=== PATIENT | male | born 2000 | race Caucasian/White ===

== ENCOUNTER 2020-05-18 11:00 | Emergency (ER) | payer SELFPAY ==
[~2020-05-18] VITALS: Ht 170 cm; Wt 62.0 kg
--- NOTE | 2020-05-18 11:26 | ED Upper Extremity ---
General Chief Complaint: Upper Extremity Stated Complaint: R ARM PAIN/INJ Nursing Triage Note: patient reports a bull stepping on his R forearm yesterday evening Nursing Sepsis Screen: No Definite Risk Source: patient Exam Limitations: no limitations History of Present Illness Date Seen by Provider: May 18, 2020 Time Seen by Provider: 11:06 Initial Comments Patient presents ER by private conveyance with chief complaint that last night while at a boarding competition he was thrown from a bowl and the back leg and the ball came down on his extended right forearm midshaft causing hyperextension injury and pain and swelling in his right elbow and proximal radius, ulna on the right side. He did not get struck anywhere else and has no pain elsewhere. He has limited range of motion to supination/pronation and extension of the right forearm. He is holding his right forearm and splinting position against his body. He is right-handed. No previous fracture or surgery or medical history. He does not take any medications routinely. He did take some Tylenol but has not been checked out for this yet. He denies being struck in the head nor loss of consciousness. Allergies and Home Medications Allergies Coded Allergies: No Known Drug Allergies (Unverified , 05/18/20) Patient Home Medication List Home Medication List Reviewed: Yes Review of Systems Constitutional: No chills, No diaphoresis EENTM: No ear discharge, No ear pain Respiratory: No cough, No short of breath Cardiovascular: No Hx of Intervention, No syncope Gastrointestinal: No abdominal pain, No constipation, No diarrhea Genitourinary: No decreased output, No discharge Musculoskeletal: see HPI; No back pain; joint pain All Other Systems Reviewed Negative Unless Noted: Yes Past Eyjytll-Kzvpso-Mrqdoc Hx Patient Social History Alcohol Use: Denies Use Recreational Drug Use: No Smoking Status: Never a Smoker Recent Foreign Travel: No Contact w/Someone Who Travel: No Recent Infectious Disease Expo: No Recent Hopitalizations: No Past Medical History Surgeries: No Respiratory: No Cardiac: No Neurological: No Genitourinary: No Gastrointestinal: No Musculoskeletal: No Endocrine: No HEENT: No Cancer: No Psychosocial: No Integumentary: No Blood Disorders: No Physical Exam Vital Signs Vital Signs - First Documented 05/18/20 11:05 Temp 36.7 Pulse 63 Resp 18 B/P (MAP) 131/89 (103) Pulse Ox 99 Capillary Refill : Less Than 3 Seconds Height, Weight, BMI Height: '" Weight: lbs. oz. kg; 21.00 BMI Method: General Appearance: WD/WN, no apparent distress HEENT: normal ENT inspection, pharynx normal Neck: full range of motion, normal inspection Cardiovascular: normal peripheral pulses, regular rate, rhythm Respiratory: no respiratory distress, no accessory muscle use Shoulder: normal inspection, non-tender, no evidence of injury, normal ROM Elbow/Forearm: Right, bone tenderness (proximal ulna/radius right), ecchymosis (proximal right forearm), limited ROM (right forearm held in flexion splinted against the body), pain (proximal right forearm), soft tissue tenderness (proximal right forearm), swelling (Soft, nontender) Wrist: Yes non-tender, Yes no evidence of injury, Yes normal ROM Hand: normal inspection, non-tender, no evidence of injury, normal ROM, Right Neurologic/Psychiatric: no motor/sensory deficits, alert, normal mood/affect, oriented x 3 Skin: warm/dry, ecchymosis Progress/Results/Core Measures Results/Orders My Orders Orders - KOKO CAVANAUGH Forearm, Right, 2 Views (05/18/20 11:15) Elbow, Right, 3 Views (05/18/20 11:15) Vital Signs/I&O 05/18/20 11:05 Temp 36.7 Pulse 63 Resp 18 B/P (MAP) 131/89 (103) Pulse Ox 99 Blood Pressure Mean: 103 Progress Progress Note : Time: 11:23 Progress Note Ice pack. He declined anything for pain. Plan to get focused x-rays of the right elbow as well as the radius/ulna. Do not suspect compartment syndrome. Do suspect fracture possible olecranon or shaft. Diagnostic Imaging Diagonstic Imaging: Xray Plain Films/CT/US/NM/MRI: elbow (right) Comments [facility]. [place], [place] NAME: RE HERNANDEZZACH Araya MED REC#: [id number] PT STATUS: REG ER : 2000 PHYSICIAN: KOKO CAVANAUGH MD ADMIT DATE: 05/18/20/ER Draft Date of Exam:05/18/20 ELBOW, RIGHT, 3 VIEWS INDICATION: Right elbow pain. FINDINGS: AP, oblique, and lateral views of the right elbow were obtained. No fracture or acute bony abnormality is seen. IMPRESSION: Negative right elbow. Dictated on workstation # [id number] Dict: 05/18/20 1212 Trans: 05/18/20 1217 [facility] [id number] Interpreted by: JYOTI BLANCA MD Electronically signed by: Reviewed: Reviewed by Me Diagonstic Imaging: Xray Plain Films/CT/US/NM/MRI: forearm (right) Comments NAME: MICHAEL HERNANDEZ [facility] REC#: [id number] PT STATUS: REG ER : 2000 PHYSICIAN: KOKO CAVANAUGH MD ADMIT DATE: 05/18/20/ER Draft Date of Exam:05/18/20 FOREARM, RIGHT, 2 VIEWS INDICATION: Injury to right forearm AP and lateral views of the right forearm are obtained. No fracture or acute bony abnormality is seen. IMPRESSION: Negative right forearm. Dictated on workstation # [id number] Dict: 05/18/20 1213 Trans: 05/18/20 1217 [facility] [id number] Interpreted by: JYOTI BLANCA MD Electronically signed by: Reviewed: Reviewed by Me Departure Impression Primary Impression: Sprain of right elbow Qualified Codes: S53.401A - Unspecified sprain of right elbow, initial encounter Disposition: 01 HOME, SELF-CARE Condition: Stable Departure-Patient Inst. Decision time for Depature: 12:20 Referrals: NO,LOCAL PHYSICIAN (PCP/Family) Primary Care Physician Patient Instructions: Elbow Sprain (DC) Add. Discharge Instructions: Wrap the elbow with an Lisandro bandage or neoprene sleeve. Keep it in a sling for about one week taking it out several times a day to move it around. Ice pack 20 minutes on every 2-4 hours for the first 2 days. Warm moist heat can be helpful for pain. Topical creams such as icy hot, Biofreeze, blue emu, etc. Tylenol 1000 mg every 8 hours as necessary for pain. Ibuprofen 800 mg every 8 hours as necessary for pain. If you're not seeing some significant improvement in 7-10 days then you need to follow-up with your primary care doctor or you may return to the ER for further evaluation. All discharge instructions reviewed with patient and/or family. Voiced und erstanding. Work/School Note: Work Release Form Date Seen in the Emergency Department: May 18, 2020 Return to Work: May 19, 2020 Restrictions: Need Release from Doctor Other Restrictions Listed Below: No lifting, pushing or pulling greater than 5# with right arm until 05/25/20 KOKO CAVANAUGH May 18, 2020 11:26
--- NOTE | 2020-05-18 12:18 | Diagnostic Imaging Report ---
INDICATION: Injury to right forearm AP and lateral views of the right forearm are obtained. No fracture or acute bony abnormality is seen. IMPRESSION: Negative right forearm. Dictated by: Dictated on workstation # [id number]
--- NOTE | 2020-05-18 12:18 | Diagnostic Imaging Report ---
INDICATION: Right elbow pain. FINDINGS: AP, oblique, and lateral views of the right elbow were obtained. No fracture or acute bony abnormality is seen. IMPRESSION: Negative right elbow. Dictated by: Dictated on workstation # [id number]
[2020-05-18 12:36] VITALS: BP 131/89
== END 2020-05-18 12:36 | disposition home or self-care (01) ==
LOC: ER 11:02
DX: S53.401A Unspecified sprain of right elbow, initial encounter (principal); S50.11XA Contusion of right forearm, initial encounter; W55.22XA Struck by cow, initial encounter
CPT/HCPCS: 73080; 73090; 99283; A4565

== ENCOUNTER 2020-12-07 21:54 | Emergency (ER) | payer OTHER ==
[2020-12-07] MEDS ORDERED: fentaNYL INJECTION 100 MCG/2 ML AMP IVP STA (22:02)
--- NOTE | 2020-12-07 22:02 | ED Upper Extremity ---
General Stated Complaint: LEFT ARM INJURY History of Present Illness Date Seen by Provider: Dec 07, 2020 Time Seen by Provider: 22:02 Initial Comments 20-year-old male presents with injury to the left forearm. Patient was riding bowls at a local rodeo when a ball came down on his left forearm. He has significant swelling up around proximal portion of the forearm right below the elbow. He has multiple abrasions, has painful range of motion. Has good sensation and pulses. Patient had a Genaro splint placed in the field. Patient had no other injuries. Allergies and Home Medications Allergies Coded Allergies: No Known Drug Allergies (Unverified , 05/18/20) Patient Home Medication List Home Medication List Reviewed: Yes Review of Systems Constitutional: no symptoms reported Respiratory: no symptoms reported Cardiovascular: no symptoms reported Gastrointestinal: no symptoms reported Genitourinary: no symptoms reported Musculoskeletal: see HPI Skin: see HPI Psychiatric/Neurological: No Symptoms Reported Past Irpojer-Kvrnbw-Cbbgrx Hx Past Med/Social Hx: Reviewed Nursing Past Med/Soc Hx Patient Social History Recent Hopitalizations: No Past Medical History Surgeries: No Respiratory: No Cardiac: No Neurological: No Genitourinary: No Gastrointestinal: No Musculoskeletal: No Endocrine: No HEENT: No Cancer: No Psychosocial: No Integumentary: No Blood Disorders: No Physical Exam Vital Signs Vital Signs - First Documented 12/07/20 21:58 Temp 36.6 Pulse 88 Resp 16 B/P (MAP) 156/78 (104) Pulse Ox 97 O2 Delivery Room Air Capillary Refill : Height, Weight, BMI Height: '" Weight: lbs. oz. kg; 21.00 BMI Method: General Appearance: mild distress HEENT: PERRL/EOMI Neck: full range of motion Cardiovascular: normal peripheral pulses, regular rate, rhythm Respiratory: lungs clear, normal breath sounds Gastrointestinal: non tender, soft Shoulder: normal inspection Elbow/Forearm: bone tenderness, soft tissue tenderness, swelling Wrist: Yes normal inspection Hand: normal inspection Neurologic/Psychiatric: alert, normal mood/affect, oriented x 3 Skin: other (Multiple abrasions left forearm) Progress/Results/Core Measures Results/Orders My Orders Orders - BREONNA GUSTAFSON DO Forearm 2 View Left (12/07/20 22:02) Ortho Glass (12/07/20 22:24) Vital Signs/I&O 12/07/20 21:58 Temp 36.6 Pulse 88 Resp 16 B/P (MAP) 156/78 (104) Pulse Ox 97 O2 Delivery Room Air Progress Progress Note : Time: 22:27 Progress Note Patient with large contusion/hematoma of left forearm, x-ray shows questionable hairline fracture. Will place him in a splint. I recommend he has a repeat x- ray in approximately 7 to 10 days for recheck of the forearm. Departure Impression Primary Impression: Crushing injury of left forearm, initial encounter Disposition: HOME, SELF-CARE Condition: Stable Departure-Patient Inst. Referrals: NO,LOCAL PHYSICIAN (PCP/Family) Primary Care Physician Patient Instructions: Forearm Fracture (DC), Crush Injury, Contusion (DC) Add. Discharge Instructions: Follow-up with your primary care provider in 7 to 10 days or job placement specialist for repeat of your left forearm and clearance to take off the splint Ice to affected area Keep left arm elevated Tylenol or ibuprofen as needed for pain BREONNA GUSTAFSON DO Dec 07, 2020 22:02
[2020-12-07 22:40] VITALS: BP 156/78
--- NOTE | 2020-12-08 07:31 | Diagnostic Imaging Report ---
INDICATION: Injury to left forearm. Time of exam: 9:59 PM Two views of the left forearm demonstrate normal alignment at the elbow and wrist. The radius and ulna are intact. No fractures are seen. IMPRESSION: No acute bony abnormality is detected. Dictated by: Dictated on workstation # [id number]
== END 2020-12-07 22:43 | disposition home or self-care (01) ==
LOC: EDUNIT# 21:54 → ER FS 21:57
DX: S57.82XA Crushing injury of left forearm, initial encounter (principal); I10 Essential (primary) hypertension; Y92.39 Other specified sports and athletic area as the place of occurrence of the external cause
CPT/HCPCS: 29105; 73090; 99284; A4565

== ENCOUNTER 2021-10-27 21:57 | Emergency (ER) | payer OTHER ==
[~2021-10-27] VITALS: Ht 167.7 cm; Wt 64.6 kg
--- NOTE | 2021-10-27 22:26 | ED General ---
General Chief Complaint: General Problems/Pain Stated Complaint: DIZZINESS,LIGHTHEADED,RIB/CHEST PAIN Source of Information: Patient History of Present Illness Date Seen by Provider: Oct 27, 2021 Time Seen by Provider: 21:59 Initial Comments 21-year-old male presenting with complaints of nasal congestion, head pressure, dizziness, lightheadedness, left-sided rib and chest pain, diarrhea, near syncope since Wednesday. He thought that it might be a low blood sugar but it did not improve with eating or having sugary foods. He continued to feel dizzy and lightheaded and it seemed to be worse with trying to stand or change positions. He has a family history of cardiac disease and so he was worried that he might be having a heart attack or heart issues. 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 He states that they did scan his head and things to look fine at that time. He has been coughing and having a mild sore throat. He does not know of any ill contacts. He denies any pain with urination. He states he has not seen any blood in his urine, stool. He has not had nausea or vomiting. He has been eating and drinking okay. The denies any significant past medical problems. He has had appendicitis with surgery for removal when he was 11 years old. At 18 he had surgery on his left hip and femur. Timing/Duration: 3-4 Days Severity: Severe Modifying Factors: worse with Movement Associated Systoms: Chest Pain (left sided c hest wall pains off and on for a few months), Cough (for last few days); No Diaphoresis, No Fever/Chills; Headaches (pressure in his head); No Loss of Appetite, No Malaise, No Nausea/Vomiting, No Rash, No Seizure, No Shortness of Air, No Syncope (near syncope with dizziness and light headed sensation with standing and changing positions); Weakness (general) Allergies and Home Medications Allergies Coded Allergies: No Known Drug Allergies (Unverified , 05/18/20) Patient Home Medication List Home Medication List Reviewed: Yes Azithromycin (Azithromycin) 500 Mg Tablet, 500 MG PO DAILY Prescribed by: CARMELITA VALENTIN on 10/28/21 0012 Review of Systems Review of Systems Constitutional: see HPI; No chills; dizziness; No fever; weakness EENTM: blurred vision, nose congestion, other (pressure in his head); No hearing loss, No ear pain, No epistaxis, No throat pain Respiratory: cough; No hemoptysis, No stridor; wheezing Cardiovascular: chest pain (left rib and chest wall pain for few months but worse since Wednesday with coughing. pain is sharp in nature and can last for a few minutes. comes on sporadically, but worse with cough) Gastrointestinal: No abdominal pain; diarrhea (1-2 loose diarrhea stools a day since Wednesday); No loss of appetite, No melena, No nausea, No vomiting Genitourinary: No decreased output, No dysuria, No frequency, No hematuria Musculoskeletal: No back pain, No muscle pain, No neck pain Skin: No change in color, No rash Psychiatric/Neurological: Headache (pressure in his head); Denies Numbness, Denies Paresthesia, Denies Seizure, Denies Tingling, Denies Tremors Hematologic/Lymphatic: Denies Blood Clots, Denies Easy Bleeding, Denies Easy Bruising Past Rajajgw-Yukqfw-Kjsipn Hx Patient Social History Tobacco Use?: No Substance use?: No Alcohol Use?: No Pt feels they are or have been: No Past Medical History Surgery/Hospitalization HX: Appendectomy 11 yo, Left hip and femur reconstruction 18 yo Surgeries: Yes Appendectomy, Orthopedic Respiratory: No Cardiac: No Neurological: No Genitourinary: No Gastrointestinal: No Musculoskeletal: No Endocrine: No HEENT: No Cancer: No Psychosocial: No Integumentary: No Blood Disorders: No Physical Exam Vital Signs Vital Signs - First Documented 10/27/21 21:59 Temp 36.5 Pulse 72 Resp 16 B/P (MAP) 134/70 (91) Pulse Ox 98 O2 Delivery Room Air Capillary Refill : Height, Weight, BMI Height: '" Weight: lbs. oz. kg; 21.00 BMI Method: General Appearance: No Apparent Distress, WD/WN HEENT: PERRL/EOMI, Pharynx Normal, Moist Mucous Membranes Neck: Full Range of Motion, Normal Inspection, Non Tender, Supple Respiratory: No Accessory Muscle Use, No Respiratory Distress, Rhonci (left lung), Wheezing (left lung), Other (tender to palpation left side of chest and ribs) Cardiovascular: Regular Rate, Rhythm, No Edema, No Gallop, No JVD, No Murmur, Normal Peripheral Pulses Gastrointestinal: Normal Bowel Sounds, No Pulsatile Mass, Non Tender, Soft Rectal: Deferred Extremity: Normal Capillary Refill, Normal Inspection, No Pedal Edema Neurologic/Psychiatric: Alert, Oriented x3, barge loader II-XII Norm as Tested Skin: Normal Color, Warm/Dry; No Rash Progress/Results/Core Measures Suspected Sepsis SIRS Temperature: Pulse: Respiratory Rate: Laboratory Tests 10/27/21 21:10: White Blood Count 11.1H Blood Pressure / Mean: Laboratory Tests 10/27/21 21:10: Creatinine 0.82, INR Comment 0.9, Platelet Count 335, Total Bilirubin 1.1H Results/Orders Lab Results Laboratory Tests Test 10/27/21 21:10 10/27/21 22:26 10/27/21 22:27 Range/Units White Blood Count 11.1 H 4.3-11.0 10^3/uL Red Blood Count 4.95 4.30-5.52 10^6/uL Hemoglobin 14.1 13.3-17.7 g/dL Hematocrit 42 40-54 % Mean Corpuscular Volume 85 80-99 fL Mean Corpuscular Hemoglobin 29 25-34 pg Mean Corpuscular Hemoglobin Concent 33 32-36 g/dL Red Cell Distribution Width 13.3 10.0-14.5 % Platelet Count 335 130-400 10^3/uL Mean Platelet Volume 10.0 9.0-12.2 fL Immature Granulocyte % (Auto) 0 % Neutrophils (%) (Auto) 60 42-75 % Lymphocytes (%) (Auto) 30 12-44 % Monocytes (%) (Auto) 7 0-12 % Eosinophils (%) (Auto) 1 0-10 % Basophils (%) (Auto) 1 0-10 % Neutrophils # (Auto) 6.7 1.8-7.8 10^3/uL Lymphocytes # (Auto) 3.4 1.0-4.0 10^3/uL Monocytes # (Auto) 0.8 0.0-1.0 10^3/uL Eosinophils # (Auto) 0.2 0.0-0.3 10^3/uL Basophils # (Auto) 0.1 0.0-0.1 10^3/uL Immature Granulocyte # (Auto) 0.0 0.0-0.1 10^3/uL Prothrombin Time 12.7 12.2-14.7 SEC INR Comment 0.9 0.8-1.4 Activated Partial Thromboplast Time 28 24-35 SEC Sodium Level 143 135-145 MMOL/L Potassium Level 3.5 L 3.6-5.0 MMOL/L Chloride Level 103 98-107 MMOL/L Carbon Dioxide Level 25 21-32 MMOL/L Anion Gap 15 H 5-14 MMOL/L Blood Urea Nitrogen 7 7-18 MG/DL Creatinine 0.82 0.60-1.30 MG/DL Estimat Glomerular Filtration Rate 128 BUN/Creatinine Ratio 9 Glucose Level 98 70-105 MG/DL Calcium Level 9.4 8.5-10.1 MG/DL Corrected Calcium 9.1 8.5-10.1 MG/DL Total Bilirubin 1.1 H 0.1-1.0 MG/DL Aspartate Amino Transf (AST/SGOT) 34 5-34 U/L Alanine Aminotransferase (ALT/SGPT) 24 0-55 U/L Alkaline Phosphatase 89 40-136 U/L Troponin I < 0.30 <0.30 NG/ML C-Reactive Protein 1.33 H <0.50 MG/DL Total Protein 7.4 6.4-8.2 GM/DL Albumin 4.4 3.2-4.5 GM/DL Urine Color YELLOW Urine Clarity CLEAR Urine pH 6.5 5-9 Urine Specific [place] 1.010 L 1.016-1.022 Urine Protein NEGATIVE NEGATIVE Urine Glucose (UA) NEGATIVE NEGATIVE Urine Ketones NEGATIVE NEGATIVE Urine Nitrite NEGATIVE NEGATIVE Urine Bilirubin NEGATIVE NEGATIVE Urine Urobilinogen 0.2 < = 1.0 MG/DL Urine Leukocyte Esterase NEGATIVE NEGATIVE Urine RBC (Auto) NEGATIVE NEGATIVE Urine RBC NONE /HPF Urine WBC NONE /HPF Urine Squamous Epithelial Cells RARE /HPF Urine Crystals NONE /LPF Urine Bacteria NEGATIVE /HPF Urine Casts NONE /LPF Urine Mucus NEGATIVE /LPF Urine Culture Indicated NO Influenza Type A Antigen NEGATIVE NEGATIVE Influenza Type B Antigen NEGATIVE NEGATIVE My Orders Orders - CARMELITA VALENTIN MD Monitor-Rhythm Ecg Trace Only (10/27/21 22:17) Ed Iv/Invasive Line Start (10/27/21 22:17) Cbc With Automated Diff (10/27/21 22:17) Comprehensive Metabolic Panel (10/27/21 22:17) Crp Fs (10/27/21 22:17) Troponin I Fs (1/31/22 22:17) Protime With Inr (10/27/21 22:17) Partial Thromboplastin Time (10/27/21 22:17) Ekg Tracing (10/27/21 22:17) Ns Iv 1000 Ml (Sodium Chloride 0.9%) (10/27/21 22:30) Ua Culture If Indicated (10/27/21 22:17) Ct Head/Sinuses Wo (10/27/21 22:17) Isolation Central Supply Req (10/27/21 22:17) Influenza A & B Antigens (10/27/21 22:17) Chest Pa/Lat (2 View) (10/27/21 22:48) Ceftriaxone 1 Gm Pre-Mix (Rocephin 1 Gm (10/27/21 23:51) Azithromycin Tablet (Zithromax Tablet) (10/27/21 23:51) Dexamethasone Injection (Decadron Inje (10/28/21 00:06) Coronavirus Sars-Cov-2 So 2018 (10/28/21 22:27) Vital Signs/I&O 10/27/21 10/27/21 10/28/21 21:59 21:59 00:18 Temp 36.5 Pulse 72 76 Resp 16 16 B/P (MAP) 134/70 (91) 126/74 Pulse Ox 98 98 O2 Delivery Room Air Room Air Room Air 10/28/21 00:00 Intake Total 1000 ml Balance 1000 ml Capillary Refill : Less Than 3 Seconds Progress Note #1: Progress Note Check basic labs, urinalysis, chest x-ray for his chest wall pain and cough with rhonchi and wheezes, CT scan of his head and sinuses. His dizziness and head pressure. Obtain swab of his nose to check for influenza and COVID. Give 1 L normal saline IV fluids for hydration. Differential diagnosis includes sinusitis, COVID, influenza, pneumonia Progress Note #2: Progress Note Labs show white blood cell count is at the upper limit of normal at 11.1. His chemistry panel was stable without acute significant abnormality. His chest x- ray did not show any definite rib abnormality or infiltrate. His CT scan of the head and sinuses did show pansinusitis. Patient had electrocardiogram and cardiac enzymes that did not show any acute coronary syndrome or myocardial infarction. When reviewing results with the patient he did report feeling improvement in his symptoms with treatment. He states he was still having some pressure in his head and sensation of things being far off when he is looking around. Progress Note #3: Progress Note Will treat with Rocephin and Zithromax here as well as a dose of steroids. For home continue with the Zithromax to treat for sinusitis and possible developing lung infection since he did have wheezing and congestion on physical exam. For his nasal swab his influenza was negative but he had COVID test still pending. Counseled to quarantine until they had a negative results or if it came back positive to quarantine for 10 days. Advised to use cahg-nmt-hmftkax medicine such as Mucinex to help with congestion, cough and sinus pressure. Advised that if he continued to have pain in his chest and ribs he could establish care with primary care provider in [facility] clinic and follow up with them for further testing/imaging. ECG Initial ECG Impression Date: Oct 27, 2021 Initial ECG Impression Time: 22:16 Initial ECG Rate: 63 Initial ECG Rhythm: Normal Sinus Initial ECG Comparisson: No Previous ECG Available Comment Normal sinus rhythm with a heart rate of 63 bpm. IA interval [address] elevation. QT interval 403 ms with a QTc interval 413 ms. There is no prior tracing available in the system. Diagnostic Imaging Diagonstic Imaging: Xray Plain Films/CT/US/NM/MRI: chest Comments [facility]. [place], [place] NAME: MICHAEL HERNANDEZ [facility] REC#: [id number] PT STATUS: REG ER : 2000 PHYSICIAN: CARMELITA VALENTIN MD ADMIT DATE: 10/27/21/ER FS Signed Date of Exam:10/27/21 CHEST PA/LAT (2 VIEW) INDICATION: cough, COVID PUI, left side chest wall pain. TECHNIQUE: Two view chest 11 00 p.m. CORRELATION STUDY: None FINDINGS: The heart size, mediastinal configuration and pulmonary vasculature are within normal limits. The lungs are clear with no consolidating infiltrate. There is no significant pleural effusion or pneumothorax. Visualized osseous structures are unremarkable. IMPRESSION: 1. Negative for acute abnormality of the chest. Dictated by: Dictated on workstation # [id number] Dict: 10/27/21 2313 Trans: 10/27/212312 [id number] Interpreted by: RENNY MEAD DO Electronically signed by: RENNY MEAD DO 10/27/212312 Reviewed: Reviewed by Me Diagonstic Imaging: CT Plain Films/CT/US/NM/MRI: facial bones, head Comments [facility] [place], [place] NAME: MICHAEL HERNANDEZ [facility] REC#: [id number] PT STATUS: REG ER : 2000 PHYSICIAN: CARMELITA VALENTIN MD ADMIT DATE: 10/27/21/ER FS Signed Date of Exam:10/27/21 CT HEAD/SINUSES WO PROCEDURE: CT head without contrast and CT sinuses with contrast. TECHNIQUE: Routine noncontrast CT images were obtained through the head and sinuses. Coronal reformats of the sinuses were also performed and reviewed. Auto Exposure Controls were utilized during the CT exam to meet ALARA standards for radiation dose reduction. INDICATION: 21-year-old male, getting lightheaded for several days. CORRELATION STUDY: None FINDINGS: CT HEAD: There is no midline shift or mass effect. The ventricles and sulci are unremarkable. No evidence for acute intracranial hemorrhage, abnormal extra-axial fluid collections or cerebral edema is present. The basilar cisterns are unremarkable. The bony calvarium is intact. CT SINUSES: Frontal sinuses clear. Mild mucosal thickening of the sphenoid sinuses. There is opacification of multiple ethmoid air cells, left greater than right. Also asymmetric rather prominent mucosal thickening throughout the nasal cavity, left greater than right. Mild mucosal thickening bilateral maxillary sinuses. Soft tissue opacification of the osteomeatal complex on the left with patency on the right. IMPRESSION: CT HEAD: 1. Negative for acute intracranial abnormality. CT SINUSES: 1. Scattered multifocal sinusitis and nasal mucosal thickening. Dictated by: Dictated on workstation # [id number] Dict: 10/27/212253 Trans: 10/27/212316 ARCELIA [id number] Interpreted by: RENNY MEAD DO Electronically signed by: RENNY MEAD DO 10/27/212316 Reviewed: Reviewed by Me Departure Impression Primary Impression: Person under investigation for COVID-19 Additional Impressions: Left-sided chest wall pain Dizziness Near syncope Acute pansinusitis Qualified Codes: J01.40 - Acute pansinusitis, unspecified Disposition: HOME, SELF-CARE Condition: Stable Departure-Patient Inst. Decision time for Depature: 00:07 Referrals: NO,LOCAL PHYSICIAN (PCP) Primary Care Physician [facility] Call [phone] to establish with primary care provider for continued rib and chest pain or if not improving with medicines Patient Instructions: COVID-19 After You Have Been Vaccinated, Sinusitis, Adult ED, Chest Pain, Adult ED, Near Fainting (DC) Add. Discharge Instructions: Stay well-hydrated and drink plenty of fluids. Try using a nasal steroid spray such as Flonase or Nasonex to help with sinus pressure and headache. Take the full course of antibiotics to treat for sinusitis and help with cough and congestion in your lungs. You could also take Mucinex to help loosen congestion and cough as well as help with the sinuses drain and relieve some of the pressure from the infection in the sinuses. You should quarantine and isolate until you have a negative Covid result. If your Covid test comes back positive you should continue to quarantine for 10 days. If you have continued symptoms and are not improving with medications consider calling the [facility] about establishing care and follow-up with a local provider. All discharge instructions reviewed with patient and/or family. Voiced understanding. Scripts Azithromycin (Azithromycin) 500 Mg Tablet 500 MG PO DAILY for sinusitis for 4 Days, #4 TAB 0 Refills Prov: CARMELITA VALENTIN MD 10/28/21 Work/School Note: School/Childcare Release Date Seen in the Emergency Department: Oct 27, 2021 Time Dismissed from Emergency Department: 00:20 Return to School: Oct 30, 2021 Restrictions: Return-No Fever (24hrs) Other Restrictions Listed Below: Return Oct 30 if Covid Neg. If Positive return Nov 05 CARMELITA VALENTIN MD Oct 27, 2021 22:26
[2021-10-27] MEDS ORDERED: NS IV 1000 ML 1,000 ML IV SCH (22:30)
[2021-10-27 22:39] LABS: BASOPHILS # (AUTO) 0.1 10^3/uL (0.0-0.1); BASOPHILS % (AUTO) 1 % (0-10); EOSINOPHILS # (AUTO) 0.2 10^3/uL (0.0-0.3); EOSINOPHILS % (AUTO) 1 % (0-10); HEMATOCRIT 42 % (40-54); HEMOGLOBIN 14.1 g/dL (13.3-17.7); LYMPHOCYTES # (AUTO) 3.4 10^3/uL (1.0-4.0); LYMPHOCYTES % (AUTO) 30 % (12-44); MEAN CORPUSCULAR HEMOGLOBIN 29 pg (25-34); MEAN CORPUSCULAR HGB CONC 33 g/dL (32-36); MEAN CORPUSCULAR VOLUME 85 fL (80-99); MONOCYTES # (AUTO) 0.8 10^3/uL (0.0-1.0); MONOCYTES % (AUTO) 7 % (0-12); NEUTROPHILS # (AUTO) 6.7 10^3/uL (1.8-7.8); NEUTROPHILS % (AUTO) 60 % (42-75); PLATELET COUNT 335 10^3/uL (130-400); WHITE BLOOD COUNT 11.1 10^3/uL (4.3-11.0)
[2021-10-27 22:51] LABS: INR 0.9 (0.8-1.4); PROTHROMBIN TIME PATIENT 12.7 SEC (12.2-14.7)
[2021-10-27 22:55] LABS: BILIRUBIN,URINE NEGATIVE (NEGATIVE); CLARITY,URINE CLEAR; COLOR,URINE YELLOW; GLUCOSE, URINE (UA) NEGATIVE (NEGATIVE); KETONES,URINE NEGATIVE (NEGATIVE); LEUKOCYTE ESTERASE ,URINE NEGATIVE (NEGATIVE); NITRITE,URINE NEGATIVE (NEGATIVE); PH,URINE 6.5 (5-9); PROTEIN,URINE NEGATIVE (NEGATIVE)
--- NOTE | 2021-10-27 23:00 | Diagnostic Imaging Report ---
PROCEDURE: CT head without contrast and CT sinuses with contrast. TECHNIQUE: Routine noncontrast CT images were obtained through the head and sinuses. Coronal reformats of the sinuses were also performed and reviewed. Auto Exposure Controls were utilized during the CT exam to meet ALARA standards for radiation dose reduction. INDICATION: 21-year-old male, getting lightheaded for several days. CORRELATION STUDY: None FINDINGS: CT HEAD: There is no midline shift or mass effect. The ventricles and sulci are unremarkable. No evidence for acute intracranial hemorrhage, abnormal extra-axial fluid collections or cerebral edema is present. The basilar cisterns are unremarkable. The bony calvarium is intact. CT SINUSES: Frontal sinuses clear. Mild mucosal thickening of the sphenoid sinuses. There is opacification of multiple ethmoid air cells, left greater than right. Also asymmetric rather prominent mucosal thickening throughout the nasal cavity, left greater than right. Mild mucosal thickening bilateral maxillary sinuses. Soft tissue opacification of the osteomeatal complex on the left with patency on the right. IMPRESSION: CT HEAD: 1. Negative for acute intracranial abnormality. CT SINUSES: 1. Scattered multifocal sinusitis and nasal mucosal thickening. Dictated by: Dictated on workstation # [id number]
[2021-10-27 23:06] LABS: BACTERIA,URINE NEGATIVE /HPF; SQUAMOUS EPITHELIAL CELL,UR RARE /HPF
[2021-10-27 23:08] LABS: ALKALINE PHOSPHATASE 89 U/L (40-136); BILIRUBIN,TOTAL 1.1 MG/DL (0.1-1.0); BUN/CREATININE RATIO 9; CALCIUM 9.4 MG/DL (8.5-10.1); CARBON DIOXIDE 25 MMOL/L (21-32); CHLORIDE 103 MMOL/L (98-107); CREATININE SERUM 0.82 MG/DL (0.60-1.30); GFR ESTIMATED 128; GLUCOSE 98 MG/DL (70-105); POTASSIUM 3.5 MMOL/L (3.6-5.0); SODIUM 143 MMOL/L (135-145)
[2021-10-27 23:09] LABS: ALANINE AMINOTRANSFERASE 24 U/L (0-55); ALBUMIN 4.4 GM/DL (3.2-4.5); TOTAL PROTEIN 7.4 GM/DL (6.4-8.2)
--- NOTE | 2021-10-27 23:15 | Diagnostic Imaging Report ---
INDICATION: cough, COVID PUI, left side chest wall pain. TECHNIQUE: Two view chest 11 00 p.m. CORRELATION STUDY: None FINDINGS: The heart size, mediastinal configuration and pulmonary vasculature are within normal limits. The lungs are clear with no consolidating infiltrate. There is no significant pleural effusion or pneumothorax. Visualized osseous structures are unremarkable. IMPRESSION: 1. Negative for acute abnormality of the chest. Dictated by: Dictated on workstation # [id number]
[2021-10-27] MEDS ORDERED: AZITHROMYCIN 250 MG TAB (ZITHROMAX) PO STA (23:51)
[2021-10-27] MEDS ORDERED: cefTRIAXone 1 GM PRE-MIX 50 ML IV STA (23:51)
[2021-10-28] MEDS ORDERED: AZIT500T9 PO (00:12)
[2021-10-28 00:18] VITALS: BP 126/74
== END 2021-10-28 00:18 | disposition home or self-care (01) ==
LOC: EDUNIT# 21:57 → ER FS 21:58
DX: Z20.822 Contact with and (suspected) exposure to COVID-19 (principal); R07.89 Other chest pain; R42 Dizziness and giddiness; R55 Syncope and collapse; J01.40 Acute pansinusitis, unspecified
CPT/HCPCS: 36415; 70450; 70486; 71046; 80053; 81000; 84484; 85025; 85610; 85730; 86141; 87635; 87636; 87804; 93005

== ENCOUNTER 2021-11-12 13:27 | Emergency (ER) | payer OTHER ==
[~2021-11-12] VITALS: Ht 167 cm; Wt 63.0 kg
[~2021-11-12 13:27] MED LIST: AZIT500T9 PO
[2021-11-12 13:30] VITALS: BP 141/78
--- NOTE | 2021-11-12 13:47 | ED Head Injury ---
General Stated Complaint: HIT HEAD ON 11/08, DIZZINESS,BLURRED VISION, Source: patient Exam Limitations: no limitations History of Present Illness Date Seen by Provider: Nov 12, 2021 Time Seen by Provider: 13:31 Initial Comments 21-year-old male with no significant past medical history coming in almost 5 days after he was in a rodeo incident where he fell off of the bowl and jostled his head on the ground. He says he believes the bulls head might have grazed the left side of his head. He did not pass out and remembers all of the events. He immediately got up and was able to run away. Has not had any nausea, vomiting, weakness, numbness, or any other concerns. At times he has some blurry vision and some lightheadedness. Has a mild headache which is better with ibuprofen. Otherwise denying any other acute complaints. He has had a concussion in the past. Allergies and Home Medications Allergies Coded Allergies: No Known Drug Allergies (Unverified , 05/18/20) Patient Home Medication List Home Medication List Reviewed: Yes Azithromycin (Azithromycin) 500 Mg Tablet, 500 MG PO DAILY Prescribed by: CARMELITA VALENTIN on 10/28/21 0012 Review of Systems Review of Systems Constitutional: No chills, No fever Eyes: Denies Photophobia Respiratory: no symptoms reported Cardiovascular: no symptoms reported Gastrointestinal: no symptoms reported Genitourinary: no symptoms reported Musculoskeletal: no symptoms reported Skin: no symptoms reported Psychiatric/Neurological: Headache Endocrine: No Symptoms Reported Hematologic/Lymphatic: No Symptoms Reported All Other Systems Reviewed Negative Unless Noted: Yes Past Eljdeqb-Qqspmu-Dvhedd Hx Patient Social History Tobacco Use?: No Past Medical History Surgery/Hospitalization HX: Appendectomy 11 yo, Left hip and femur reconstruction 18 yo Surgeries: Yes Appendectomy, Orthopedic Respiratory: No Cardiac: No Neurological: No Genitourinary: No Gastrointestinal: No Musculoskeletal: No Endocrine: No HEENT: No Cancer: No Psychosocial: No Integumentary: No Blood Disorders: No Physical Exam Vital Signs Capillary Refill : Height, Weight, BMI Height: '" Weight: lbs. oz. kg; 22.00 BMI Method: General Appearance: WD/WN, no apparent distress HEENT: PERRL/EOMI, normal ENT inspection, TMs normal, pharynx normal, other (normal visual carrillo) Neck: non-tender, full range of motion, supple, normal inspection Cardiovascular: regular rate, rhythm, no edema, no murmur Respiratory: chest non-tender, lungs clear, normal breath sounds, no respiratory distress, no accessory muscle use Gastrointestinal: normal bowel sounds, non tender, soft; No distended, No guarding, No rebound Back: normal inspection, no CVA tenderness, no vertebral tenderness Extremities: normal range of motion, non-tender, normal inspection, no pedal edema, no calf tenderness, normal capillary refill Psychiatric: alert, oriented x 3 Crainal Nerves: normal hearing, normal speech, PERRL Coordination/Gait: normal finger to nose, normal gait, negative Romberg's sign Motor/Sensory: no motor deficit, no sensory deficit, no pronator drift, other (Normal tandem gait, normal single-leg stance, normal memory) Skin: normal color, warm/dry Lymphatic: no adenopathy Ninoska Coma Score Best Eye Response: (4) Open Spontaneously Best Verbal Response: (5) Oriented Best Motor Response: (6) Obeys Commands Progress/Results/Core Measures Progress Progress Note : Progress Note 21-year-old male with above history coming in after he had a minor head injury going on 5 days ago. ABCs intact and vitals were stable on presentation. Physical exam reassuring including a normal complete neuro exam. He is smiling and well-appearing. He is [place] head CT rule negative especially being was 5 days out and being mildly symptomatic. He does clinically have a concussion however which I discussed with him what this means. I recommend symptomatic management. He was discharged home in stable condition with strict return precautions peer Departure Impression Primary Impression: Concussion Qualified Codes: S06.0X0A - Concussion without loss of consciousness, initial encounter Disposition: HOME, SELF-CARE Condition: Stable Departure-Patient Inst. Decision time for Depature: 13:46 Referrals: NO,LOCAL PHYSICIAN (PCP/Family) Primary Care Physician Patient Instructions: Concussion in Adults Add. Discharge Instructions: It is my recommendation that you take a break from rodeo until your symptoms are gone, and follow the concussion protocol for your school via your director athletic. Take ibuprofen 600 mg every 6 hours as needed for headache. Drink plenty of fluids. Work/School Note: School/Childcare Release Date Seen in the Emergency Department: Nov 12, 2021 Time Dismissed from Emergency Department: 13:47 Return to School: Nov 13, 2021 Restrictions: No Sports-Until Released NATHAN BARTON MD Nov 12, 2021 13:47
== END 2021-11-12 13:51 | disposition home or self-care (01) ==
LOC: EDUNIT# 13:27 → ER 13:30
DX: S06.0X0A Concussion without loss of consciousness, initial encounter (principal); W22.8XXA Striking against or struck by other objects, initial encounter
CPT/HCPCS: 99281